=== PATIENT | female | born 1985 | race Caucasian/White ===

== ENCOUNTER 2020-01-09 14:45 | Outpatient (CLI) | payer BC, SELFPAY ==
--- NOTE | ~2020-01-09 | XR_ITS ---
EXAMINATION:XR_[id number]_CR DATE: 01/09/2020 15:06 INDICATION: Neck pain TECHNIQUE: AP, lateral, lateral swimmers and odontoid views of the cervical spine are provided. COMPARISON: CT, 07/17/2017 FINDINGS: There is straightening of the cervical spine which can be positional or due to muscular spa sm. Alignment is normal. The odontoid is intact. No fracture is identified. Vertebral body heights an d disk spaces are normal. Prevertebral soft tissues are normal. IMPRESSION: 1. No acute osseous abnormality. Reviewed, dictated and finalized at location A.
== END 2020-01-09 14:46 | disposition home or self-care (01) ==
LOC: CHSLAB 14:48
PROVIDERS: PCP Internal Medicine; Visit Provider Internal Medicine
DX: M54.2 Cervicalgia (principal)
CPT/HCPCS: 72040

== ENCOUNTER 2020-04-12 04:50 | Emergency (ER) | payer BC, SELFPAY ==
[2020-04-12] VITALS (12 sets, daily range): BP systolic 89–117; BP diastolic 56–79; PULSE 67–94; RESP 12–16; TEMP 36.3; O2SAT 95–100
--- NOTE | ~2020-04-12 | CT_ITS ---
EXAMINATION: CT abdomen pelvis w con DATE: 04/12/2020 06:22 INDICATION: Left lower quadrant abdominal pain for 3 days. Vaginal spotting. History of tubal ligatio n. TECHNIQUE: Computed tomography (CT) of the abdomen and pelvis was performed with 100 cc Omnipaque 350 intravenous contrast. Automated exposure control and iterative reconstruction technique were employe d. Exam dose: 386.78 mGy-cm total exam DLP. COMPARISON: None. FINDINGS: Minimal dependent atelectasis of the lower lobes. The lung bases are otherwise clear. Sylvie l heart size. No pericardial or pleural effusion. Several hepatic cysts, measuring up to 2 cm. The gallbladder is present. No pericholecystic fluid or stranding. No bile duct or pancreatic duct di latation. No pancreatic mass lesion or calcification. Normal splenic size. Normal morphology of the adrenal glands. Adjacent 1.3 cm hypoenhancing lesions of the anterior mid to upper left kidney with attenuation in th e mid 20-30 Hounsfield unit density range; consider sonographic correlation for better characterizati on. No other renal mass lesion. No urinary tract calculus or hydroureteronephrosis. Normal caliber of the abdominal aorta. No intraperitoneal or retroperitoneal or pelvic mass lesion or adenopathy or ascites. Uterus and adnexal areas are unremarkable.. The urinary bladder is unremarkable. Normal appendix. No bowel obstruction, bowel wall thickening, pneumatosis or intraperitoneal free air . There is old burst fracture deformity of L2. There is mild old compression fracture deformity of T11, with cupping of the superior vertebral endplate.. IMPRESSION: Adjacent approximately 1.3 cm hypoattenuating lesions of left kidney low-attenuation the mid 20-30 Hounsfield unit density range; consider ultrasound for correlation Hepatic cysts Chronic fracture deformities of T11 and L2 Reviewed, dictated and finalized at [facility] A. Reviewed, dictated and finalized at location A. IMPRESSION: Adjacent approximately 1.3 cm hypoattenuating lesions of left kidn ey low-attenuation the mid 20-30 Hounsfield unit density range; consider ultras ound for correlation Hepatic cysts Chronic fracture deformities of T11 and L2
--- NOTE | ~2020-04-12 | US_ITS ---
EXAMINATION: US pelvic complete w TV DATE: 04/12/2020 08:34 INDICATION: Left pelvic pain. TECHNIQUE: Multiple transabdominal and transvaginal sonographic images of the pelvis were obtained. COMPARISON: CT abdomen and pelvis 04/12/2020 FINDINGS: TRANSABDOMINAL ULTRASOUND: The uterus measures 6.9 x 3.9 x 3.6 cm. There is trace free fluid in the pelvis. TRANSVAGINAL ULTRASOUND: The endometrial complex measures 15 mm in thickness. The right ovary measures 3.4 x 2.4 x 1.9 cm. The left ovary measures 2.8 x 2.1 x 1.6 cm. There is normal vascular flow in the ovaries. IMPRESSION: 1. Normal pelvis. Reviewed, dictated and finalized at location D. IMPRESSION: 1. Normal pelvis.
--- NOTE | 2020-04-12 05:09 | ED.ABDPAIN ---
HPI - Abdominal Pain General Chief Complaint: Abdominal Pain <Cortez Pinzon MD - Last Filed: 04/13/20 04:33> Stated Complaint: abdominal pain <Cortez Pinzon MD - Last Filed: 04/13/20 04:33> Time Seen by Provider: 04/12/20 04:58 <Cortez Pinzon MD - Last Filed: 04/13/20 04:33> History of Present Illness HPI narrative: Intermittent LLQ pain for the past 3 days. Was mild, now severe. She notes that she had some spotting at the beggining of the pain. She has never had this pain before. No nausea, vomiting, diarrhea, constipation, dysuria, hematuria. She previously had her tubes removed. <Cortez Pinzon MD - Last Filed: 04/13/20 04:33> Related Data Home Medications: Home Medications Medication Instructions Recorded Confirmed topiramate 50 mg PO BID 04/12/20 <Cortez Pinzon MD - Last Filed: 04/13/20 04:33> Allergies/Adverse Reactions: Allergies Allergy/AdvReac Type Severity Reaction Status Date / Time No Known Allergies Allergy Verified 04/12/20 05:19 <Cortez Pinzon MD - Last Filed: 04/13/20 04:33> Review of Systems Review of Systems: All systems reviewed & are unremarkable except as noted in HPI and below <Cortez Pinzon MD - Last Filed: 04/13/20 04:33> Constitutional: Constitutional: Denies fever(s) <Cortez Pinzon MD - Last Filed: 04/13/20 04:33> Cardiovascular: Cardiovascular: Denies chest pain <Cortez Pinzon MD - Last Filed: 04/13/20 04:33> Respiratory: Respiratory: Denies dyspnea <Cortez Pinzon MD - Last Filed: 04/13/20 04:33> Gastrointestinal: Gastrointestinal: Reports abdominal pain, Denies constipation, Denies diarrhea, Denies nausea and Denies vomiting <Cortez Pinzon MD - Last Filed: 04/13/20 04:33> Genitourinary: Genitourinary: Denies hematuria, Denies nocturia and Denies dysuria <Cortez Pinzon MD - Last Filed: 04/13/20 04:33> Musculoskeletal: Musculoskeletal: Denies back pain <Cortez Pinzon MD - Last Filed: 04/13/20 04:33> Neurologic: Denies dizziness and Denies weakness <Cortez Pinzon MD - Last Filed: 04/13/20 04:33> PMFSH Past Medical History Medical History: Medical History (Updated 04/13/20 @ 00:00 by Background Dasara) Leukorrhea <Cortez Pinzon MD - Last Filed: 04/13/20 04:33> Social History Social History: Social History (Updated 04/12/20 @ 05:14 by Cortez Pinzon MD) Smoking status: Never smoker <Cortez Pinzon MD - Last Filed: 04/13/20 04:33> Exam Const: General: healthy appearing, no acute distress and alert <Cortez Pinzon MD - Last Filed: 04/13/20 04:33> Nutritional Appearance: well nourished <Cortez Pinzon MD - Last Filed: 04/13/20 04:33> Orientation/consciousness: patient oriented x3 <Cortez Pinzon MD - Last Filed: 04/13/20 04:33> HENMT: Head: normal to inspection <Cortez Pinzon MD - Last Filed: 04/13/20 04:33> Neck: Neck: normal visual inspection and no lymphadenopathy <Cortez Pinzon MD - Last Filed: 04/13/20 04:33> Chest: Chest palpation & inspection: no tenderness <Cortez Pinzon MD - Last Filed: 04/13/20 04:33> Resp: Effort & Inspection: normal respiratory effort <Cortez Pinzon MD - Last Filed: 04/13/20 04:33> Auscultation: clear to auscultation bilaterally, no rales, no rhonchi and no wheezes <Cortez Pinzon MD - Last Filed: 04/13/20 04:33> Cardio: Jugular venous distension: no JVD <Cortez Pinzon MD - Last Filed: 04/13/20 04:33> Rate: regular rate <Cortez Pinzon MD - Last Filed: 04/13/20 04:33> Rhythm: regular rhythm <Cortez Pinzon MD - Last Filed: 04/13/20 04:33> Heart sounds: no murmurs <Cortez Pinzon MD - Last Filed: 04/13/20 04:33> GI: Inspection: non-distended <Cortez Pinzon MD - Last Filed: 04/13/20 04:33> GI Palp: Yes Soft to palpation, Yes Tenderness to palpation present (GI) (LLQ), No Guarding due to palpati
[2020-04-12] MEDS: SODIUM CHLORIDE 0.9% IV 1,000 ML 999 ML IV CONT (05:30)
[2020-04-12] MEDS: fentaNYL CITRATE INJ (*CRX) 100 MCG/2 ML VIAL 50 MCG IV PUSH (05:30)
[2020-04-12 05:54] LABS: Basophils Absolute Auto 0.1 K/mm3 (0.0-0.1); Basophils Percent Auto 0.9 % (0.2-1.2); Eosinophils Absolute Auto 0.3 K/mm3 (0-0.3); Eosinophils Percent Auto 3.8 % (0-4.4); Hemoglobin 13.4 g/dL (12.0-15.0); Immature Granulocyte Absolute 0.02 K/mm3 (0.00-0.031); Immature Granulocyte Percent A 0.2 % (0-0.5); Lymphocytes Absolute Auto 2.15 K/mm3 (0.9-3.2); Lymphocytes Percent Auto 25.4 % (18.3-44.2); Mean Corpuscular HGB Conc 31.9 g/dl (32-36); Mean Corpuscular Hemoglobin 28.6 pg (26-34); Mean Corpuscular Volume 89.6 fl (80-100); Mean Platelet Volume 10.4 fl (7.4-10.4); Monocytes Absolute Auto 0.7 K/mm3 (0.1-0.6); Monocytes Percent Auto 8.4 % (2.6-8.5); Neutrophils Absolute Auto 5.2 K/mm3 (1.3-6.7); Neutrophils Percent Auto 61.3 % (45.5-73.1); Platelet Count Result 387 k/mm3 (150-375); Red Blood Count 4.69 M/mm3 (4.2-5.4); Red Cell Distribution Width 13.3 % (11.5-14.5); White Blood Count 8.5 K/mm3 (4.5-10.0)
[2020-04-12 06:07] LABS: Alanine Aminotransferase 10 U/L (4-35); Alkaline Phosphatase 106 U/L (38-126); Anion Gap 8 mmol/L (8-16); Aspartate Amino Transferase 21 U/L (14-36); Bilirubin,Total 0.5 mg/dL (0.2-1.3); Blood Urea Nitrogen 8 mg/dL (7-17); Calcium 8.9 mg/dL (8.4-10.2); Carbon Dioxide 26 mmol/L (22-30); Chloride 106 mmol/L (98-107); Estimated CRCL calculation 83 ml/min; Estimated Glomerular Filt Rate > 60; Glucose 92 mg/dL (65-105); Lipase 49 U/L (23-300); Potassium 3.8 mmol/L (3.4-5.0); Sodium 140 mmol/L (137-145)
[2020-04-12 06:15] LABS: Add Urine Microscopic? YES; Appearance Urine Clear (Clear); Bacteria Urine Trace /hpf; Bilirubin Urine Negative (Negative); Blood Urine Negative (Negative); Color Urine Yellow (Yellow); Glucose Urine UA Negative (Negative); Ketones Urine Negative (Negative); Leukocyte Esterase Ur 1+ LEU/UL (Negative); Mucus Urine Rare /lpf; Nitrate Urine Negative (Negative); Protein Urine Negative (Negative); Specific Grav Ur 1.016 (1.001-1.035); Squamous Epithelial Cell Urine Many /hpf (Few)
== END 2020-04-12 09:49 | disposition home or self-care (01) ==
PROVIDERS: Emergency Provider Emergency Medicine; PCP Internal Medicine
DX: R10.32 Left lower quadrant pain (principal); N28.9 Disorder of kidney and ureter, unspecified
CPT/HCPCS: 36415; 74177; 76830; 76856; 80053; 81001; 81025; 83690; 85025; 96361; 96374; 99284; J3010; J7030; Q9967

== ENCOUNTER 2020-04-17 09:12 | Outpatient (CLI) | payer BC, SELFPAY ==
--- NOTE | ~2020-04-17 | US_ITS ---
EXAMINATION: US retroperitoneal comp DATE: 04/17/2020 09:42 INDICATION: Hypoattenuating left renal lesions on prior CT TECHNIQUE: Multiple ultrasound grayscale images of the kidneys were obtained. COMPARISON: CT dated 04/22/2020 FINDINGS: The right kidney measures 10.7 x 4.7 x 5.4 cm. The left kidney measures 11.3 x 5.0 x 5.4 cm. The kidn eys demonstrate normal echogenicity. There are a pair of anechoic renal cysts at the upper pole of th e left kidney measuring 1.6 cm and 1.5 cm in maximal diameters. Each demonstrates a linear echogenic internal septation which is without discernible enhancement on the prior CT consistent with Bosniak 2 cystic lesions. There is no hydronephrosis in either kidney. No stones identified. The bladder is n ormal. Incidental 2.9 cm anechoic right ovarian cyst. IMPRESSION: 1. 1.6 cm and 1.5 cm Bosniak 2 cysts in the left kidney. 2. 2.9 cm right ovarian cyst. Reviewed, dictated and finalized at location B.
== END 2020-04-17 09:13 | disposition home or self-care (01) ==
PROVIDERS: PCP Internal Medicine; Visit Provider Internal Medicine
DX: R94.4 Abnormal results of kidney function studies (principal); N28.1 Cyst of kidney, acquired
CPT/HCPCS: 76770

== ENCOUNTER 2020-05-14 10:28 | Outpatient (CLI) | payer BC, SELFPAY ==
--- NOTE | ~2020-05-14 | XR_ITS ---
EXAMINATION: XR chest 2V EXAM DATE: 05/14/2020 10:51 INDICATION: Dyspnea X 3 Weeks On Exertion, Dizziness, Pain In Shoulders. TECHNIQUE: Frontal and lateral projections of the chest obtained and reviewed. There is no prior jasmeet dy for comparison. FINDINGS: The lungs are clear. There are no pleural effusions. The cardiomediastinal silhouette is within normal limits. There is no pneumothorax suspected. The bones and soft tissues are unremarkab le. IMPRESSION: Unremarkable chest x-ray exam. Reviewed, dictated and finalized at location A. D OPERATOR
--- NOTE | ~2020-05-14 | CT_ITS ---
EXAMINATION: CTA chest PE protocol DATE: 05/14/2020 15:43 INDICATION: Shortness of breath. TECHNIQUE: Computed tomography angiography (CTA) of the chest was performed with 100 mL Omnipaque-350 intravenous contrast timed to evaluate the pulmonary arteries. Coronal maximum intensity projection 3D-reconstructions were created by the technologist. Automated exposure control and iterative reconst ruction technique were employed. The dose-length product was 217.29 mGy-cm. COMPARISON: CT abdomen and pelvis 04/12/2020 FINDINGS: There is mild dependent atelectasis bilaterally. There is a 4 mm nodule in left lower lobe, likely benign. No pleural effusion. The heart size is normal. No pericardial effusion. There is no p ulmonary embolus. There are cysts in the liver measuring up to 2.2 cm. There is a 1.5 cm cyst in left kidney. There are old healed fractures of right fifth-seventh ribs. There is a chronic compression f racture of T11. IMPRESSION: 1. No pulmonary embolus. Reviewed, dictated and finalized at location B. CODE STRIPER IMPRESSION: 1. No pulmonary embolus.
[2020-05-14 10:41] LABS: Basophils Absolute Auto 0.07 K/mm3 (0.00-0.10); Eosinophils Absolute Auto 0.16 K/mm3 (0.02-0.50); Eosinophils Percent Auto 2.4 % (1.0-6.0); Hematocrit 39.7 % (35.0-49.0); Hemoglobin 12.7 g/dL (12.0-15.0); Immature Granulocyte Absolute 0.02 K/mm3 (0.00-0.00); Immature Granulocyte Percent A 0.3 % (0.0-0.0); Lymphocytes Absolute Auto 1.61 K/mm3 (1.10-4.50); Lymphocytes Percent Auto 24.1 % (18.0-42.0); Mean Corpuscular Hemoglobin 28.6 pg (27.0-31.0); Mean Corpuscular Volume 89.4 fL (78.0-102.0); Mean Platelet Volume 10.1 fl (9.2-11.8); Neutrophils Absolute Auto 4.2 K/mm3 (1.7-7.2); Neutrophils Percent Auto 63.2 % (50.0-70.0); Platelet Count Result 382 K/mm3 (150-420); Red Blood Count 4.44 M/mm3 (4.20-5.40); Red Cell Distribution Width 13.3 % (11.6-14.4); White Blood Count 6.7 K/mm3 (4.8-10.8)
[2020-05-14 11:11] LABS: BNP 18 pg/mL (0-100)
[2020-05-14 11:14] LABS: D Dimer 1.04 mg/L (0.19-0.50)
[2020-05-14 11:33] LABS: Alanine Aminotransferase 19 U/L (14-59); Albumin Level 3.7 g/dL (3.4-5.0); Alkaline Phosphatase 106 U/L (46-116); Anion Gap 10 mmol/L (8-16); Aspartate Amino Transferase 17 U/L (15-37); Bilirubin,Total 0.3 mg/dL (0.00-1.00); Blood Urea Nitrogen 15 mg/dL (7-18); Calcium 9.3 mg/dL (8.5-10.1); Carbon Dioxide 24 mmol/L (21-32); Chloride 106 mmol/L (98-108); Estimated Glomerular Filt Rate > 60; Glucose 101 mg/dL (70-99); Osmolality Calculated 290 mOsm/kg (285-295); Potassium 4.5 mmol/L (3.5-5.1); Sodium 140 mmol/L (136-145); Total Protein 7.1 g/dL (6.4-8.2)
== END 2020-05-14 10:29 | disposition home or self-care (01) ==
PROVIDERS: PCP Internal Medicine; Visit Provider Internal Medicine
DX: R06.02 Shortness of breath (principal); R79.1 Abnormal coagulation profile; R06.01 Orthopnea; R06.00 Dyspnea, unspecified
CPT/HCPCS: 36415; 71046; 71275; 80053; 83880; 85025; 85380; Q9965

== ENCOUNTER 2020-08-06 14:59 | Outpatient (CLI) | payer BC, SELFPAY ==
--- NOTE | ~2020-08-06 | MR_ITS ---
EXAMINATION: MR abdomen wo/w con DATE: 08/06/2020 16:14 INDICATION: Left kidney mass. TECHNIQUE: Magnetic resonance imaging (MRI) of the abdomen was performed without and with 14 mL Multi Oneil intravenous contrast. Sequences included coronal T2-weighted FS FSE, coronal and axial FIESTA F S, coronal LAVA-flex, axial LAVA, axial T2-weighted FSE, axial T1-weighted dual-echo FSPGR, axial STI R FSE, and axial DWI. Postcontrast sequences included coronal LAVA-flex and a time course of axial LA VA. COMPARISON: CT abdomen and pelvis 04/08/2020, ultrasound 04/17/2020 FINDINGS: There are cysts in the liver measuring up to 2.4 cm. The gallbladder, spleen, pancreas, adrenal gland s, and right kidney are normal. There is a 10 mm cyst in left kidney. There is a [address] in left kidney. There are no dilated loops of bowel. The appendix is normal. There are no patholog ically enlarged lymph nodes. There is no free intraperitoneal fluid. IMPRESSION: 1. Benign cysts in left kidney. Reviewed, dictated and finalized at location A. ET TURNER
[2020-08-06 15:41] LABS: Estimated Glomerular Filt Rate > 60
== END 2020-08-06 15:00 | disposition home or self-care (01) ==
LOC: ANHIMG 15:02
PROVIDERS: PCP Internal Medicine; Visit Provider Urology
DX: N28.89 Other specified disorders of kidney and ureter (principal)
CPT/HCPCS: 74183; A9577